=== PATIENT | male | born 1975 | race Caucasian/White ===

== ENCOUNTER 2019-06-27 06:07 | Day surgery (SDC) | payer BC ==
[2019-06-23 16:10] VITALS: BMI 34.9
[2019-06-27] MEDS ORDERED: TETRACAINE 0.5% OPHTH SOLN 2 ML BOTTLE ONE (07:08)
[2019-06-27] MEDS ORDERED: POVIDONE-IODINE 5% OPHTHALMIC PREP 30 ML SOLUTION ONE (07:08)
[2019-06-27] MEDS ORDERED: ERYTHROMYCIN 0.5% OPHTHALMIC OINTMENT 3.5 GM TUBE ONE (07:08)
[2019-06-27] MEDS ORDERED: BUPIVACAINE HCL/PF 0.5% (5MG/ML) 10 ML VIAL ONE (07:09)
[2019-06-27] MEDS ORDERED: LIDOCAINE 1%/EPI 1:100000 (20 ML MULTI DOSE VIAL) ONE (07:09)
[2019-06-27] MEDS ORDERED: MIDAZOLAM HCL 2 MG/2 ML SINGLE DOSE VIAL ONE ×3 (07:19→08:27)
[2019-06-27] MEDS ORDERED: PROPOFOL 20 ML ONE ×3 (07:19)
[2019-06-27] MEDS ORDERED: GLYCOPYRROLATE 0.2 MG/1 ML VIAL ONE (07:23)
[2019-06-27] MEDS ORDERED: ceFAZolin SODIUM 1 GM VIAL ONE (08:08)
[2019-06-27] MEDS ORDERED: DEXAMETHASONE SOD PHOSPHATE 4 MG/1 ML VIAL ONE (08:36)
[2019-06-27] MEDS ORDERED: ONDANSETRON 4 MG/2 ML VIAL ONE (08:36)
[2019-06-27] MEDS ORDERED: oxyCODONE HCL 5 MG TABLET PO PRN (09:27)
[2019-06-27] MEDS ORDERED: ONDANSETRON 4 MG/2 ML VIAL IVPUSH PRN (09:27)
[2019-06-27] MEDS ORDERED: LACTATED RINGERS SOLUTION 1,000 ML IV SCH (09:30)
[2019-06-27 09:36] VITALS: TEMP 97.5
[2019-06-27] MEDS ORDERED: oxyCODONE HCL 5 MG TABLET ONE ×2 (10:15→12:12)
--- NOTE | 2019-06-27 11:04 | OP ---
DATE OF OPERATION: 06/27/2019 PREOPERATIVE DIAGNOSIS: Ectropion, floppy lid, left upper lid with a chronic ocular irritation. POSTOPERATIVE DIAGNOSIS: Ectropion, floppy lid, left upper lid with a chronic ocular irritation. PROCEDURE: 1. Lateral tarsal strip, left upper lid. 2. Full-thickness medial wedge resection, left upper lid. 3. Repair of floppy left upper eyelid. ANESTHESIA: Local with sedation. COMPLICATIONS: None. ESTIMATED BLOOD LOSS: 2 mL. OPERATIVE REPORT: Patient brought to the operating room. Placed on the operating room table. Vital signs were monitored by Anesthesia. Tetracaine was placed in both eyes. Lateral canthal line was marked left lateral canthus, and inverted pentagon was marked in the nasal portion of the eyelid. Time-out was performed. Intravenous sedation was administered, and a 50/50 mixture of 2% Xylocaine, 1:100,000 epinephrine and 0.5% Marcaine was injected subcutaneously in the mild left upper and the lateral canthus, down to the periosteum, lateral 1/3 of the upper and lower lid. Patient was massaged for hemostasis. Prepped and draped in the usual sterile fashion exposing both eyes. Right eye was manually closed. A full-thickness wedge resection was now carried out nasally in the eyelid with the Que scissors and an Adson forceps and then the resected area was reapproximated with 3 interrupted 6-0 silk sutures, 1 through the anterior lash line, 1 through the mucocutaneous junction, and a vertical mattress suture through the great line creating a slight pucker. These were all tied and looped inferiorly. The tarsus was then closed with 3 interrupted 6-0 Vicryl sutures. The lid was everted demonstrating no penetration of suture. The muscle layer was closed after antibiotic irrigation with 6-0 Vicryl suture, and the skin was closed with a running and interrupted 6-0 plain suture with removal of a standard cutaneous deformity at the superior edge, and the margin sutures were lifted supranasally and secured with a single 6-0 silk suture. Attention was now turned to the lateral canthus. The lid was still moderately relaxed. Incision was made at the lateral canthus with a 15 blade and carried down through muscle layer with a [place] needle to the orbital rim. A small amount of fat was sculpted that prolapsed. The superior arturo of the lateral canthal tendon was from the orbital rim with sharp dissection avoiding the lacrimal gland. The lid was overlapped, marked with a sterile making pen, divided into an anterior and posterior lamella. The posterior lamella denuded of epithelium inferiorly and posteriorly. The anterior lamella was partially excised and then the tarsal strip was created, and the upper lid was secured with a double-arm 5-0 Prolene suture, which was then passed through the internal surface of the orbital rim at the junction with the inferior arturo of the lateral canthal tendon. Symmetry was judged by comparing it to the contralateral eye; 6-0 Vicryl was used as a lasso suture to reinforce this loop through the lateral tarsal strip. The lateral canthal angle was reformed with a buried 5-0 chromic through the mcnamara line of the upper and lower lid in buried fashion re-creating the lateral canthus. Prolene was now tied reattaching the tarsal strip to the orbital rim. The muscle layer was closed over the Prolene with a 6-0 Vicryl suture, and the skin was closed with a running 6-0 plain suture with plastic technique. Antibiotic irrigation was used throughout the case. Erythromycin ointment was placed in the eye and on the sutures of the lateral upper lid nasally and at the lateral canthus, and the patient was taken to recovery room in stable condition. WEI DIAZ M.D. [id number]
[2019-06-27 12:47] VITALS: BP 130/80; PULSE 58
--- NOTE | 2019-06-29 16:00 | PATH ---
Surgical Pathology Report Patient Name: DEBORAH PEREZ Med. Rec. #: [id number] /Age/Gender: 1975 (Age: 44) / M Account: [id number] Location: [facility] Taken: 06/27/2019 Received: 06/27/2019 Reported: 06/29/2019 Physicians: Jose Lewis Specimen(s) Received PORTION LEFT UPPER EYELID Clinical History Floppy left upper eyelid Final Diagnosis PORTION OF LEFT UPPER EYELID, WEDGE RESECTION: PORTION OF SKIN WITH NO PATHOLOGIC FINDINGS. CONJUNCTIVAL TISSUE SHOWING MILD ACUTE AND CHRONIC INFLAMMATION. Electronically Signed Anne Chris M.D. Gross Description Received in formalin labeled "portion of left upper eyelid," is a 0.9 x 0.6 x 0.4 cm tesfaye, unoriented portion of skin. The specimen is inked green, trisected and entirely submitted in one cassette. /06/28/[address] [facility]06[facility]28/2019
== END 2019-06-27 12:50 | disposition home or self-care (01) ==
LOC: FASU 06:07
PROVIDERS: ATTEND Ophthalmology
PROC: 08R Eye, Replacement (ICD-10-PCS; principal; 2019-06-27 08:11)
DX: H02.104 Unspecified ectropion of left upper eyelid (principal); H02.89 Other specified disorders of eyelid; H57.10 Ocular pain, unspecified eye
CPT/HCPCS: 94760